=== PATIENT | female | born 1960 | race Caucasian/White ===

== ENCOUNTER 2016-06-02 15:44 | Inpatient (IN) | payer BC, OTHER ==
[2016-06-02] VITALS (262 sets, daily range): BP systolic 131–139; BP diastolic 95–111; PULSE 104–140; TEMP 98.1–98.4; O2SAT 89–98
[~2016-06-02] VITALS: Ht 167.6 cm; Wt 141.8 kg
[2016-06-02 16:18] LABS: BASO % 0.1 % (0.0-2.0); EOS # 0.1 (0.0-0.7); EOS % 0.9 % (0-4.0); GRAN # 3.6 (1.4-6.5); GRAN % 44.5 % (42.2-75.2); HEMATOCRIT 45.9 % (37.0-47.0); HEMOGLOBIN 14.8 g/dl (12.5-16.0); LYMPH # 3.8 (1.2-3.4); LYMPH % 46.5 % (20.0-51.0); MEAN CELL VOLUME 84 fl (80.0-100.0); MEAN CORPUSCULAR HEMOGLOBIN 27 pg (27.0-31.0); MEAN CORPUSCULAR HGB CONC 32 g/dl (33.0-37.0); MEAN PLATELET VOLUME 10.4 fl (7.4-10.4); MONO # 0.6 (0.1-0.6); MONO % 7.5 % (1.7-9.3); PLATELET COUNT 230 K/mm3 (130-400); RED BLOOD COUNT 5.44 M/mm3 (4.10-5.30); WHITE BLOOD COUNT 8.1 K/mm3 (4.8-10.8)
[2016-06-02 16:33] LABS: PROTHROMBIN TIME 11.3 SECONDS (9.7-12.8)
[2016-06-02 16:41] LABS: ALBUMIN 4.6 gm/dL (3.5-5.0); BILIRUBIN,TOTAL 0.6 mg/dL (0.0-1.0); CALCIUM 9.5 mg/dL (8.4-10.2); CREATININE, serum 0.63 mg/dL (0.52-1.25); POTASSIUM 4.1 mmol/L (3.4-5.0); TOTAL PROTEIN 7.6 gm/dL (6.4-8.2)
[2016-06-02 16:53] LABS: TROPONIN-I 0.017 ng/mL (0.000-0.034)
[2016-06-02 17:52] LABS: PH 5 (5-8); SQUAMOUS EPITHELIAL 0-2 /hpf; URINE APPEARANCE Clear; URINE BACTERIA None Seen /hpf; URINE BILIRUBIN Negative (NEGATIVE); URINE BLOOD Negative (NEGATIVE); URINE COLOR Yellow; URINE GLUCOSE Negative (NEGATIVE); URINE KETONE Negative (NEGATIVE); URINE RBC 0-2 /hpf; URINE UROBILINOGEN Negative (NEGATIVE); URINE WBC 0-2 /hpf
[2016-06-03] VITALS (791 sets, daily range): BP systolic 106–128; BP diastolic 45–84; PULSE 70–98; TEMP 97.5–98.6; O2SAT 86–99
[2016-06-03 06:17] LABS: CHOLESTEROL 184 mg/dL (120-200); HDL CHOLESTEROL 35 mg/dL; LDL CHOLESTEROL 92 mg/dL; TRIGLYCERIDE 284 mg/dL
[2016-06-03 07:29] LABS: TROPONIN-I < 0.012 ng/mL (0.000-0.034)
[2016-06-04 00:02] VITALS: BP 129/61; PULSE 96; TEMP 98.1
[2016-06-04 04:24] VITALS: BP 103/50; PULSE 64; TEMP 98.9
[2016-06-04 08:30] LABS: HEMATOCRIT 42.2 % (37.0-47.0); HEMOGLOBIN 13.4 g/dl (12.5-16.0); MEAN CELL VOLUME 85 fl (80.0-100.0); MEAN CORPUSCULAR HEMOGLOBIN 27 pg (27.0-31.0); MEAN CORPUSCULAR HGB CONC 32 g/dl (33.0-37.0); MEAN PLATELET VOLUME 11.1 fl (7.4-10.4); PLATELET COUNT 205 K/mm3 (130-400); RED BLOOD COUNT 4.97 M/mm3 (4.10-5.30); REDCELL DISTRIBUTION WIDTH-CV 13.9 % (11.5-14.5)
[2016-06-04 08:45] LABS: CALCIUM 8.9 mg/dL (8.4-10.2); CREATININE, serum 0.52 mg/dL (0.52-1.25); POTASSIUM 3.8 mmol/L (3.4-5.0)
[2016-06-04 09:36] VITALS: BP 116/72; PULSE 72; TEMP 98.2
[2016-06-04 13:34] VITALS: BP 142/80; PULSE 70; TEMP 98.4
[2016-06-04 17:44] VITALS: BP 125/79; PULSE 72; TEMP 98.2
[2016-06-04 19:56] VITALS: BP 129/67; PULSE 73; TEMP 98.5
[2016-06-05] VITALS (17 sets, daily range): BP systolic 115–443; BP diastolic 47–95; PULSE 54–68; TEMP 97.6–98.6
[2016-06-05 07:46] LABS: HEMATOCRIT 44.1 % (37.0-47.0); HEMOGLOBIN 14.2 g/dl (12.5-16.0); MEAN CELL VOLUME 85 fl (80.0-100.0); MEAN CORPUSCULAR HEMOGLOBIN 27 pg (27.0-31.0); MEAN CORPUSCULAR HGB CONC 32 g/dl (33.0-37.0); MEAN PLATELET VOLUME 10.7 fl (7.4-10.4); PLATELET COUNT 229 K/mm3 (130-400); RED BLOOD COUNT 5.22 M/mm3 (4.10-5.30); REDCELL DISTRIBUTION WIDTH-CV 13.9 % (11.5-14.5); WHITE BLOOD COUNT 6.4 K/mm3 (4.8-10.8)
[2016-06-05 07:47] LABS: CALCIUM 9.3 mg/dL (8.4-10.2); CREATININE, serum 0.59 mg/dL (0.52-1.25); POTASSIUM 3.8 mmol/L (3.4-5.0)
[2016-06-05 07:55] LABS: PROTHROMBIN TIME 11.5 SECONDS (9.7-12.8)
[2016-06-05 07:58] LABS: PARTIAL THROMBOPLASTIN TIME 31.6 SECONDS (26.0-37.0)
[2016-06-05] MEDS ORDERED: XARELTO20 MG PO (18:35)
[2016-06-05] MEDS ORDERED: BETAPACE 120MG120 MG PO (18:36)
[2016-06-05] MEDS ORDERED: PRAVACHOL10 MG PO (18:37)
== END 2016-06-05 21:27 | disposition home or self-care (01) | DRG 287 ==
LOC: COL.ER 15:44 → IMCU 17:30 → MEDICAL 17:30 → IMCU 18:42 → MEDICAL 06-03 16:14
PROVIDERS: Emergency Medicine; Family Medicine; Internal Medicine Cardiovascular Disease
PROC: 5A2204Z Restoration of Cardiac Rhythm, Single (ICD-10-PCS; 2016-06-03)
PROC: B2111ZZ Fluoroscopy of Multiple Coronary Arteries using Low Osmolar Contrast (ICD-10-PCS; principal; 2016-06-05)
PROC: 4A023N7 Measurement of Cardiac Sampling and Pressure, Left Heart, Percutaneous Approach (ICD-10-PCS; 2016-06-05)
DX: I48.0 Paroxysmal atrial fibrillation (principal); Z68.43 Body mass index [BMI] 50.0-59.9, adult; E66.01 Morbid (severe) obesity due to excess calories; I10 Essential (primary) hypertension
CPT/HCPCS: 99223-AI; 99232-AI; 99233-AI; 99239; C1769; C1894; J1560; J1650; J2250; J2704; J3010; J7050; Q9967

== ENCOUNTER → 2018-03-04 | Outpatient (CLI) | payer BC ==
[~2018-03-04] MED LIST: BETAPACE 120MG120 MG PO; PRAVACHOL10 MG PO; XARELTO20 MG PO
== END ==
LOC: SUN.CLI 10:19
DX: I10 Essential (primary) hypertension (principal); E78.5 Hyperlipidemia, unspecified; E66.01 Morbid (severe) obesity due to excess calories